=== PATIENT | male | born 1955 | race Asian ===

== ENCOUNTER 2017-07-06 13:14 | Inpatient (IN) | payer MEDICAID ==
[2017-07-06] MEDS: PROPOFOL 100 ML IV (13:26)
[2017-07-06 13:54] LABS: ADD MAN DIFF? NO
[2017-07-06 13:55] LABS: WHITE BLOOD COUNT 25.8 10^3/ul (4.8-10.8)
[2017-07-06 13:55] LABS: ABNORMAL IP MESSAGE 1; BASOPHIL # 0.1 10^3/ul (0.0-0.1); BASOPHILS % 0.2 % (0.0-2.0); HEMATOCRIT 30.3 % (42.0-52.0); HEMOGLOBIN 10.2 g/dl (14.0-18.0); LYMPHOCYTES % 3.7 % (15.0-51.0); MEAN CORPUSCULAR HEMOGLOBIN 38.8 pg (29.0-33.0); MEAN CORPUSCULAR HGB CONC 33.7 g/dl (32.0-37.0); MEAN CORPUSCULAR VOLUME 115.2 fl (82.0-101.0); MEAN PLATELET VOLUME 11.8 fl (7.4-10.4); MONOCYTE # 2.2 10^3/ul (0.3-0.9); MONOCYTES % 8.4 % (0.0-11.0); NEUTROPHIL # 22.2 10^3/ul (1.6-7.5); PLATELET COUNT 240 10^3/UL (140-415); POSITIVE DIFF @See below; RED BLOOD COUNT 2.63 10^6/ul (4.70-6.10); RED CELL DISTRIBUTION WIDTH 16.1 % (11.5-14.5)
[2017-07-06 14:18] LABS: AMMONIA 37 umol/l (9-30)
[2017-07-06 14:20] LABS: ALANINE AMINOTRANSFERASE 48 IU/L (13-69); ALBUMIN 2.9 g/dl (3.3-4.9); ALBUMIN/GLOBULIN RATIO 0.55; ALKALINE PHOSPHATASE 165 IU/L (42-121); ANION GAP 22 (8-16); ASPARTATE AMINO TRANSFERASE 182 IU/L (15-46); BILIRUBIN,INDIRECT 3.1 mg/dl (0-1.1); BILIRUBIN,TOTAL 7.2 mg/dl (0.2-1.3); BLOOD UREA NITROGEN 48 mg/dl (7-20); CARBON DIOXIDE 16 mmol/L (21-31); CHLORIDE 100 mmol/L (97-110); CREATININE 2.51 mg/dl (0.61-1.24); GLUCOSE 160 mg/dl (70-220); INR 2.56; LIPASE 521 U/L (23-300); PROTIME 28.2 Sec (11.9-14.9); PT RATIO 2.2; SODIUM 131 mmol/L (135-144); TOTAL PROTEIN 8.1 g/dl (6.1-8.1)
[2017-07-06 14:21] LABS: PARTIAL THROMBOPLASTIN TIME 58.6 Sec (25.0-35.0)
[2017-07-06 14:25] LABS: POTASSIUM 6.6 mmol/L (3.5-5.1)
[2017-07-06 14:27] LABS: AADO2 Arterial 204.5 mmHg (7.0-24.0); Allen Test ACCEPTAB; Arterial Base Excess -10.2 mmol/L (-3.0-3); Arterial Blood Gas Oxygen Sat 99.9 mmHG (95.0-98.0); Arterial COHb 0.5 % (0.0-3.0); Arterial HCO3 17.2 mmol/L (22.0-26.0); Arterial MetHb 0.4 % (0.0-1.5); Arterial Total Hemglobin 10.9 g/dl (12.0-18.0); Arterial pCO2 43.6 mmhg (35-45); MODE VENT - AC; Site Right Radial
[2017-07-06 14:31] LABS: TROPONIN-I 0.037 ng/ml (0.00-0.12)
[2017-07-06] MEDS: SOD CHLORIDE 0.9% 1,000 ML IV ×2 (14:31→20:21)
[2017-07-06] MEDS: MIDAZOLAM (DRIP) 50 mg/50 mL 50 ML IV (14:32)
[2017-07-06] MEDS: LACTATED RINGER'S 1,000 ML IV (14:41)
[2017-07-06] MEDS ORDERED: DEXTROSE 50% 50 ML SYRINGE IV (15:00)
[2017-07-06] MEDS: CEFEPIME 1GM/50 ML (PMX) 50 ML IVPB (15:01)
[2017-07-06] MEDS: ALBUTEROL 0.083% (NEB) 2.5 MG/3 ML AMP HHN (15:49)
[2017-07-06] MEDS: DEXTROSE 50% 50 ML SYRINGE IV (16:09)
[2017-07-06] MEDS: INSULIN REGULAR, HUMAN 100 UNIT/1 ML 3ML VIAL IVP (16:11)
[2017-07-06] MEDS: LACTULOSE 30ML CUP NGT (16:12)
[2017-07-06] MEDS: CALCIUM GLUCONATE 10% 1 GM in DEXTROSE 5% 100 ML IVPB (16:12)
[2017-07-06] MEDS: AZITHROMYCIN 500MG/NS (PMX) 250 ML IVPB (17:42)
[2017-07-06] MEDS ORDERED: VANCOMYCIN IV PER PHARMACY XX (18:00)
[2017-07-06] MEDS ORDERED: ONDANSETRON 4 MG INJ IV (18:00)
[2017-07-06] MEDS ORDERED: NACL 0.9% 3 ML SYG IV (18:00)
[2017-07-06] MEDS: LIDOCAINE 1% (MDV) 10 ML INJ (18:24)
[2017-07-06] MEDS: VANCOMYCIN 1.5 GM in SOD CHLORIDE 0.9% 250 ML IVPB (19:32)
[2017-07-06 19:42] LABS: ADD UMIC YES; UR AMORPHOUS CRYSTAL FEW /HPF (NONE SEEN); UR ASCORBIC ACID NEGATIVE (NEGATIVE); UR BILIRUBIN (Dip) 1+ mg/dL (NEGATIVE); UR BLOOD (Dip) 2+ mg/dL (NEGATIVE); UR CLARITY CLOUDY (CLEAR); UR COLOR AMBER (YELLOW); UR GLUCOSE (Dip) 1+ mg/dL (NEGATIVE); UR KETONES (Dip) NEGATIVE (NEGATIVE); UR LEUKOCYTE ESTERASE (Dip) TRACE Leu/ul (NEGATIVE); UR MUCUS FEW /HPF (NONE SEEN); UR NITRITE (Dip) NEGATIVE (NEGATIVE); UR RBC 5 /HPF (0-5); UR SPECIFIC GRAVITY (Dip) 1.016 (1.003-1.030); UR TOTAL PROTEIN (Dip) 1+ mg/dl (NEGATIVE); UR UROBILINOGEN (Dip) NEGATIVE (NEGATIVE); UR WBC 7 /HPF (0-5)
[2017-07-06] MEDS: PIPER-TAZO 3.375 GM IV (PMX) 100 ML IVPB (22:00)
[2017-07-07] MEDS: SOD CHLORIDE 0.9% 500 ML IV (01:13)
[2017-07-07] MEDS: PIPER-TAZO 3.375 GM IV (PMX) 100 ML IVPB ×3 (05:25→22:20)
[2017-07-07] MEDS: PANTOPRAZOLE 40 MG INJ IV (05:25)
[2017-07-07] MEDS: MIDAZOLAM (DRIP) 50 mg/50 mL 50 ML IV ×3 (05:33→16:07)
[2017-07-07 05:34] LABS: ADD MAN DIFF? NO
[2017-07-07 05:45] LABS: ABNORMAL IP MESSAGE 1; BASOPHILS % 0.1 % (0.0-2.0); EOSINOPHILS % 0.2 % (0.0-7.0); HEMATOCRIT 23.5 % (42.0-52.0); HEMOGLOBIN 8.3 g/dl (14.0-18.0); LYMPHOCYTES # 1.5 10^3/ul (0.8-2.9); LYMPHOCYTES % 8.5 % (15.0-51.0); MEAN CORPUSCULAR HGB CONC 35.3 g/dl (32.0-37.0); MEAN CORPUSCULAR VOLUME 110.3 fl (82.0-101.0); MEAN PLATELET VOLUME 12.2 fl (7.4-10.4); MONOCYTE # 1.5 10^3/ul (0.3-0.9); MONOCYTES % 8.6 % (0.0-11.0); NEUTROPHIL # 14.7 10^3/ul (1.6-7.5); PLATELET COUNT 162 10^3/UL (140-415); POSITIVE DIFF @See below; RED BLOOD COUNT 2.13 10^6/ul (4.70-6.10); RED CELL DISTRIBUTION WIDTH 15.6 % (11.5-14.5)
[2017-07-07 05:45] LABS: WHITE BLOOD COUNT 17.9 10^3/ul (4.8-10.8)
[2017-07-07 06:00] LABS: PHOSPHORUS 5.8 mg/dl (2.5-4.9)
[2017-07-07 06:02] LABS: HEMOGLOBIN A1C 5.3 % (0-5.9)
[2017-07-07 06:08] LABS: ALANINE AMINOTRANSFERASE 44 IU/L (13-69); ALBUMIN/GLOBULIN RATIO 0.48; ALKALINE PHOSPHATASE 112 IU/L (42-121); ANION GAP 10 (8-16); ASPARTATE AMINO TRANSFERASE 170 IU/L (15-46); BILIRUBIN,INDIRECT 2.9 mg/dl (0-1.1); BLOOD UREA NITROGEN 52 mg/dl (7-20); CALCIUM 7.8 mg/dl (8.4-10.2); CARBON DIOXIDE 24 mmol/L (21-31); CHLORIDE 107 mmol/L (97-110); CREATININE 2.15 mg/dl (0.61-1.24); GLUCOSE 105 mg/dl (70-220); POTASSIUM 5.8 mmol/L (3.5-5.1); SODIUM 135 mmol/L (135-144); TOTAL PROTEIN 6.1 g/dl (6.1-8.1)
[2017-07-07] MEDS: SOD CHLORIDE 0.9% 1,000 ML IV ×2 (06:30→16:52)
[2017-07-07] MEDS: ALBUMIN HUMAN 25% 50 ML IV ×2 (09:13→16:51)
[2017-07-07] MEDS: DEXTROSE 50% 50 ML SYRINGE IV (10:49)
[2017-07-07] MEDS: INSULIN REGULAR, HUMAN 100 UNIT/1 ML 3ML VIAL IVP (10:52)
[2017-07-07 14:37] LABS: ADD UMIC YES; UR ASCORBIC ACID NEGATIVE (NEGATIVE); UR BACTERIA FEW /HPF (NONE SEEN); UR BILIRUBIN (Dip) NEGATIVE (NEGATIVE); UR BLOOD (Dip) 1+ mg/dL (NEGATIVE); UR CLARITY SLIGHTLY CLOUDY (CLEAR); UR COLOR YELLOW (YELLOW); UR GLUCOSE (Dip) NEGATIVE (NEGATIVE); UR KETONES (Dip) NEGATIVE (NEGATIVE); UR LEUKOCYTE ESTERASE (Dip) NEGATIVE Leu/ul (NEGATIVE); UR NITRITE (Dip) NEGATIVE (NEGATIVE); UR RBC 1 /HPF (0-5); UR SPECIFIC GRAVITY (Dip) 1.013 (1.003-1.030); UR TOTAL PROTEIN (Dip) NEGATIVE (NEGATIVE); UR UROBILINOGEN (Dip) NEGATIVE (NEGATIVE); UR WBC 8 /HPF (0-5)
[2017-07-07 14:45] LABS: SODIUM,URINE RANDOM 52 mmol/L (30-90)
[2017-07-07 14:45] LABS: CREATININE,URINE RANDOM 59.45 mg/dl (20-370)
[2017-07-07 15:04] LABS: ANION GAP 13 (8-16); BLOOD UREA NITROGEN 49 mg/dl (7-20); CALCIUM 8.1 mg/dl (8.4-10.2); CARBON DIOXIDE 22 mmol/L (21-31); CHLORIDE 106 mmol/L (97-110); CREATININE 2.11 mg/dl (0.61-1.24); GLUCOSE 91 mg/dl (70-220); POTASSIUM 5.1 mmol/L (3.5-5.1); SODIUM 136 mmol/L (135-144)
[2017-07-07] MEDS: VANCOMYCIN 750 MG in DEXTROSE 5% 150 ML IVPB (20:25)
[2017-07-08] MEDS: ALBUMIN HUMAN 25% 50 ML IV (00:19)
[2017-07-08] MEDS: MIDAZOLAM (DRIP) 50 mg/50 mL 50 ML IV ×2 (00:20→18:00)
[2017-07-08 06:09] LABS: ADD MAN DIFF? NO
[2017-07-08 06:18] LABS: BASOPHILS % 0.2 % (0.0-2.0); EOSINOPHILS # 0.1 10^3/ul (0.0-0.5); EOSINOPHILS % 0.9 % (0.0-7.0); HEMATOCRIT 24.9 % (42.0-52.0); HEMOGLOBIN 8.9 g/dl (14.0-18.0); LYMPHOCYTES # 1.2 10^3/ul (0.8-2.9); LYMPHOCYTES % 9.2 % (15.0-51.0); MEAN CORPUSCULAR HEMOGLOBIN 39.4 pg (29.0-33.0); MEAN CORPUSCULAR HGB CONC 35.7 g/dl (32.0-37.0); MEAN CORPUSCULAR VOLUME 110.2 fl (82.0-101.0); MEAN PLATELET VOLUME 12.7 fl (7.4-10.4); MONOCYTE # 1.3 10^3/ul (0.3-0.9); MONOCYTES % 9.6 % (0.0-11.0); NEUTROPHIL # 10.4 10^3/ul (1.6-7.5); NEUTROPHILS % 79.6 % (39.0-77.0); NUCLEATED RED BLOOD CELLS% 0.2 /100WBC (0.0-0.0); PLATELET COUNT 148 10^3/UL (140-415); RED BLOOD COUNT 2.26 10^6/ul (4.70-6.10); RED CELL DISTRIBUTION WIDTH 16.1 % (11.5-14.5)
[2017-07-08] MEDS: PIPER-TAZO 3.375 GM IV (PMX) 100 ML IVPB ×3 (06:19→22:05)
[2017-07-08] MEDS: PANTOPRAZOLE 40 MG INJ IV (06:19)
[2017-07-08] MEDS: SOD CHLORIDE 0.9% 1,000 ML IV ×2 (06:19→14:59)
[2017-07-08 06:32] LABS: ANION GAP 13 (8-16); BLOOD UREA NITROGEN 42 mg/dl (7-20); CALCIUM 8.3 mg/dl (8.4-10.2); CARBON DIOXIDE 21 mmol/L (21-31); CHLORIDE 110 mmol/L (97-110); CREATININE 1.76 mg/dl (0.61-1.24); GLUCOSE 95 mg/dl (70-220); MAGNESIUM 2.1 mg/dl (1.7-2.5); PHOSPHORUS 3.9 mg/dl (2.5-4.9); POTASSIUM 4.8 mmol/L (3.5-5.1); SODIUM 139 mmol/L (135-144)
[2017-07-08] MEDS ORDERED: ALBUMIN HUMAN 25% 100 ML (09:07)
[2017-07-08] MEDS: ALBUMIN HUMAN 25% 100 ML IV ×2 (09:43→17:57)
[2017-07-08 13:23] LABS: AADO2 Arterial 66.3 mmHg (7.0-24.0); Allen Test ACCEPTAB; Arterial Base Excess -4.6 mmol/L (-3.0-3); Arterial Blood Gas Oxygen Sat 97.6 mmHG (95.0-98.0); Arterial COHb 0.6 % (0.0-3.0); Arterial Fraction of Oxyhgb 96.7 % (93.0-99.0); Arterial HCO3 19.5 mmol/L (22.0-26.0); Arterial MetHb 0.3 % (0.0-1.5); Arterial Total Hemglobin 9.9 g/dl (12.0-18.0); Arterial pCO2 32.3 mmhg (35-45); Blood Gas PS 10; MODE VENT - CPAP; Site Right Radial
[2017-07-08] MEDS: VANCOMYCIN 750 MG in DEXTROSE 5% 150 ML IVPB (19:43)
[2017-07-09] MEDS: MIDAZOLAM (DRIP) 50 mg/50 mL 50 ML IV (00:22)
[2017-07-09] MEDS: ALBUMIN HUMAN 25% 100 ML IV (02:17)
[2017-07-09 05:20] LABS: ADD MAN DIFF? NO
[2017-07-09 05:27] LABS: BASOPHIL # 0.1 10^3/ul (0.0-0.1); BASOPHILS % 0.4 % (0.0-2.0); EOSINOPHILS # 0.1 10^3/ul (0.0-0.5); HEMATOCRIT 25.1 % (42.0-52.0); HEMOGLOBIN 8.7 g/dl (14.0-18.0); LYMPHOCYTES # 1.2 10^3/ul (0.8-2.9); LYMPHOCYTES % 10.8 % (15.0-51.0); MEAN CORPUSCULAR HEMOGLOBIN 39.2 pg (29.0-33.0); MEAN CORPUSCULAR HGB CONC 34.7 g/dl (32.0-37.0); MEAN CORPUSCULAR VOLUME 113.1 fl (82.0-101.0); MEAN PLATELET VOLUME 11.8 fl (7.4-10.4); MONOCYTE # 1.1 10^3/ul (0.3-0.9); MONOCYTES % 10.1 % (0.0-11.0); NEUTROPHIL # 8.7 10^3/ul (1.6-7.5); NEUTROPHILS % 77.2 % (39.0-77.0); PLATELET COUNT 136 10^3/UL (140-415); POSITIVE DIFF @See below; RED BLOOD COUNT 2.22 10^6/ul (4.70-6.10); RED CELL DISTRIBUTION WIDTH 16.2 % (11.5-14.5)
[2017-07-09 05:27] LABS: WHITE BLOOD COUNT 11.3 10^3/ul (4.8-10.8)
[2017-07-09 06:12] LABS: ANION GAP 15 (8-16); BLOOD UREA NITROGEN 37 mg/dl (7-20); CALCIUM 8.8 mg/dl (8.4-10.2); CARBON DIOXIDE 19 mmol/L (21-31); CHLORIDE 113 mmol/L (97-110); CREATININE 1.48 mg/dl (0.61-1.24); GLUCOSE 103 mg/dl (70-220); MAGNESIUM 2.1 mg/dl (1.7-2.5); PHOSPHORUS 3.9 mg/dl (2.5-4.9); POTASSIUM 4.8 mmol/L (3.5-5.1); SODIUM 142 mmol/L (135-144)
[2017-07-09] MEDS: PIPER-TAZO 3.375 GM IV (PMX) 100 ML IVPB ×3 (06:27→22:34)
[2017-07-09] MEDS: PANTOPRAZOLE 40 MG INJ IV (06:27)
[2017-07-09] MEDS: SOD CHLORIDE 0.9% 1,000 ML IV ×3 (06:38→22:35)
[2017-07-09] MEDS: PHYTONADIONE 10 MG/ML INJ SC (13:03)
[2017-07-09] MEDS: VANCOMYCIN 750 MG in DEXTROSE 5% 150 ML IVPB (19:45)
[2017-07-09 19:52] LABS: VANCOMYCIN,TROUGH 11.3 ug/ml (10.0-20.0)
[2017-07-10] MEDS: PANTOPRAZOLE 40 MG INJ IV (05:34)
[2017-07-10] MEDS: PIPER-TAZO 3.375 GM IV (PMX) 100 ML IVPB ×3 (05:34→22:42)
[2017-07-10 05:35] LABS: ADD MAN DIFF? NO
[2017-07-10 05:37] LABS: BASOPHIL # 0.1 10^3/ul (0.0-0.1); BASOPHILS % 0.5 % (0.0-2.0); EOSINOPHILS # 0.1 10^3/ul (0.0-0.5); EOSINOPHILS % 1.1 % (0.0-7.0); HEMATOCRIT 27.8 % (42.0-52.0); HEMOGLOBIN 9.1 g/dl (14.0-18.0); LYMPHOCYTES # 1.2 10^3/ul (0.8-2.9); MEAN CORPUSCULAR HEMOGLOBIN 39.2 pg (29.0-33.0); MEAN CORPUSCULAR HGB CONC 32.7 g/dl (32.0-37.0); MEAN CORPUSCULAR VOLUME 119.8 fl (82.0-101.0); MONOCYTE # 1.5 10^3/ul (0.3-0.9); MONOCYTES % 13.2 % (0.0-11.0); NEUTROPHIL # 8.1 10^3/ul (1.6-7.5); NEUTROPHILS % 73.8 % (39.0-77.0); NUCLEATED RED BLOOD CELLS% 0.2 /100WBC (0.0-0.0); PLATELET COUNT 130 10^3/UL (140-415); RED BLOOD COUNT 2.32 10^6/ul (4.70-6.10); RED CELL DISTRIBUTION WIDTH 15.5 % (11.5-14.5)
[2017-07-10 05:52] LABS: AMMONIA 14 umol/l (9-30)
[2017-07-10 05:55] LABS: INR 2.78; PROTIME 30.1 Sec (11.9-14.9); PT RATIO 2.4
[2017-07-10 05:56] LABS: PARTIAL THROMBOPLASTIN TIME 58.2 Sec (25.0-35.0)
[2017-07-10 06:12] LABS: MAGNESIUM 2.1 mg/dl (1.7-2.5)
[2017-07-10 06:19] LABS: ALANINE AMINOTRANSFERASE 47 IU/L (13-69); ALBUMIN 2.9 g/dl (3.3-4.9); ALKALINE PHOSPHATASE 114 IU/L (42-121); ANION GAP 16 (8-16); ASPARTATE AMINO TRANSFERASE 148 IU/L (15-46); BILIRUBIN,INDIRECT 4.4 mg/dl (0-1.1); BILIRUBIN,TOTAL 9.2 mg/dl (0.2-1.3); BLOOD UREA NITROGEN 30 mg/dl (7-20); CALCIUM 8.6 mg/dl (8.4-10.2); CARBON DIOXIDE 19 mmol/L (21-31); CHLORIDE 116 mmol/L (97-110); CREATININE 1.23 mg/dl (0.61-1.24); GLUCOSE 108 mg/dl (70-220); POTASSIUM 4.9 mmol/L (3.5-5.1); SODIUM 146 mmol/L (135-144)
[2017-07-10 08:10] LABS: AADO2 Arterial 77.2 mmHg (7.0-24.0); Allen Test ACCEPTAB; Arterial Base Excess -5.3 mmol/L (-3.0-3); Arterial Blood Gas Oxygen Sat 96.3 mmHG (95.0-98.0); Arterial COHb 0.4 % (0.0-3.0); Arterial Fraction of Oxyhgb 95.6 % (93.0-99.0); Arterial HCO3 19.4 mmol/L (22.0-26.0); Arterial MetHb 0.3 % (0.0-1.5); Arterial Total Hemglobin 8.8 g/dl (12.0-18.0); Arterial pCO2 34.2 mmhg (35-45); Blood Gas PS 10; MODE VENT - CPAP; Site Right Radial
[2017-07-10] MEDS: PHYTONADIONE 10 MG/ML INJ SC (08:53)
[2017-07-10] MEDS: DEXTROSE 5%-0.45% NACL 1,000 ML IV (08:53)
[2017-07-10] MEDS: LACTULOSE 30ML CUP PO ×2 (12:00→18:00)
[2017-07-10] MEDS: RIFAXIMIN 550 MG TAB PO ×2 (12:30→21:00)
[2017-07-10] MEDS: BALSAM PERU/CASTOR OIL 60 GM TUBE TOP (13:00)
[2017-07-10 14:57] LABS: CREATININE, RANDOM URINE 72 mg/dL (20-370); MICROALBUMIN 1.2 mg/dL; MICROALBUMIN/CREATININE RATIO 17 (<30)
[2017-07-10] MEDS: VANCOMYCIN 750 MG in DEXTROSE 5% 150 ML IVPB (20:39)
[2017-07-10] MEDS: VITAMIN A & D 5 GM OINT PACKET TOP (21:00)
[2017-07-11 05:46] LABS: ADD MAN DIFF? NO
[2017-07-11 05:48] LABS: WHITE BLOOD COUNT 10.3 10^3/ul (4.8-10.8)
[2017-07-11 05:48] LABS: BASOPHIL # 0.1 10^3/ul (0.0-0.1); BASOPHILS % 0.5 % (0.0-2.0); EOSINOPHILS # 0.2 10^3/ul (0.0-0.5); EOSINOPHILS % 2.1 % (0.0-7.0); HEMATOCRIT 24.7 % (42.0-52.0); HEMOGLOBIN 8.5 g/dl (14.0-18.0); LYMPHOCYTES # 1.4 10^3/ul (0.8-2.9); LYMPHOCYTES % 13.1 % (15.0-51.0); MEAN CORPUSCULAR HGB CONC 34.4 g/dl (32.0-37.0); MEAN CORPUSCULAR VOLUME 113.3 fl (82.0-101.0); MEAN PLATELET VOLUME 12.3 fl (7.4-10.4); MONOCYTE # 1.4 10^3/ul (0.3-0.9); MONOCYTES % 13.3 % (0.0-11.0); NEUTROPHIL # 7.3 10^3/ul (1.6-7.5); NEUTROPHILS % 70.5 % (39.0-77.0); PLATELET COUNT 133 10^3/UL (140-415); RED BLOOD COUNT 2.18 10^6/ul (4.70-6.10); RED CELL DISTRIBUTION WIDTH 15.7 % (11.5-14.5)
[2017-07-11] MEDS: PIPER-TAZO 3.375 GM IV (PMX) 100 ML IVPB ×3 (05:54→22:00)
[2017-07-11] MEDS: LACTULOSE 30ML CUP PO ×4 (06:00→18:00)
[2017-07-11] MEDS: DEXTROSE 5%-0.45% NACL 1,000 ML IV (06:01)
[2017-07-11] MEDS: PANTOPRAZOLE 40 MG INJ IV (06:02)
[2017-07-11 06:12] LABS: INR 2.54; PT RATIO 2.2
[2017-07-11 06:15] LABS: ALANINE AMINOTRANSFERASE 46 IU/L (13-69); ALBUMIN 2.5 g/dl (3.3-4.9); ALKALINE PHOSPHATASE 94 IU/L (42-121); ANION GAP 10 (8-16); ASPARTATE AMINO TRANSFERASE 133 IU/L (15-46); BILIRUBIN,INDIRECT 3.9 mg/dl (0-1.1); BILIRUBIN,TOTAL 7.1 mg/dl (0.2-1.3); BLOOD UREA NITROGEN 23 mg/dl (7-20); CALCIUM 8.9 mg/dl (8.4-10.2); CARBON DIOXIDE 22 mmol/L (21-31); CHLORIDE 117 mmol/L (97-110); CREATININE 1.11 mg/dl (0.61-1.24); GLUCOSE 132 mg/dl (70-220); POTASSIUM 4.6 mmol/L (3.5-5.1); SODIUM 144 mmol/L (135-144); TOTAL PROTEIN 6.6 g/dl (6.1-8.1)
[2017-07-11 06:33] LABS: MAGNESIUM 1.9 mg/dl (1.7-2.5)
[2017-07-11 06:33] LABS: PHOSPHORUS 2.9 mg/dl (2.5-4.9)
[2017-07-11 07:23] LABS: PARTIAL THROMBOPLASTIN TIME 61.4 Sec (25.0-35.0)
[2017-07-11] MEDS: RIFAXIMIN 550 MG TAB PO (08:57)
[2017-07-11] MEDS: VITAMIN A & D 5 GM OINT PACKET TOP ×2 (09:08→21:00)
[2017-07-11] MEDS: BALSAM PERU/CASTOR OIL 60 GM TUBE TOP (09:08)
[2017-07-11] MEDS: PHYTONADIONE 10 MG/ML INJ SC (09:08)
[2017-07-11] MEDS: VANCOMYCIN 750 MG in DEXTROSE 5% 150 ML IVPB (19:55)
[2017-07-12] MEDS: LACTULOSE 30ML CUP PO ×4 (00:37→18:29)
[2017-07-12] MEDS: RIFAXIMIN 550 MG TAB PO ×3 (00:37→21:44)
[2017-07-12] MEDS: morphine 2 MG INJ IV (01:31)
[2017-07-12] MEDS: DEXTROSE 5%-0.45% NACL 1,000 ML IV ×2 (05:20→20:00)
[2017-07-12 05:54] LABS: ALANINE AMINOTRANSFERASE 55 IU/L (13-69); ALBUMIN 2.5 g/dl (3.3-4.9); ALBUMIN/GLOBULIN RATIO 0.59; ALKALINE PHOSPHATASE 103 IU/L (42-121); ANION GAP 11 (8-16); ASPARTATE AMINO TRANSFERASE 139 IU/L (15-46); BILIRUBIN,TOTAL 7.1 mg/dl (0.2-1.3); BLOOD UREA NITROGEN 18 mg/dl (7-20); CALCIUM 8.9 mg/dl (8.4-10.2); CARBON DIOXIDE 21 mmol/L (21-31); CHLORIDE 120 mmol/L (97-110); CREATININE 1.07 mg/dl (0.61-1.24); GLUCOSE 133 mg/dl (70-220); POTASSIUM 4.3 mmol/L (3.5-5.1); SODIUM 148 mmol/L (135-144); TOTAL PROTEIN 6.7 g/dl (6.1-8.1)
[2017-07-12] MEDS: PANTOPRAZOLE 40 MG INJ IV (05:58)
[2017-07-12] MEDS: PIPER-TAZO 3.375 GM IV (PMX) 100 ML IVPB ×3 (05:58→21:44)
[2017-07-12] MEDS: THIAMINE 100 MG TAB PO (11:00)
[2017-07-12] MEDS: FOLIC ACID 1 MG TAB PO (11:00)
[2017-07-12] MEDS: VITAMIN A & D 5 GM OINT PACKET TOP ×2 (11:42→21:43)
[2017-07-12] MEDS: BALSAM PERU/CASTOR OIL 60 GM TUBE TOP (11:43)
[2017-07-13] MEDS: LACTULOSE 30ML CUP PO ×4 (00:54→18:50)
[2017-07-13] MEDS: PIPER-TAZO 3.375 GM IV (PMX) 100 ML IVPB ×3 (06:00→20:54)
[2017-07-13] MEDS: PANTOPRAZOLE 40 MG INJ IV (06:00)
[2017-07-13 06:17] LABS: ADD MAN DIFF? NO
[2017-07-13 06:24] LABS: WHITE BLOOD COUNT 11.8 10^3/ul (4.8-10.8)
[2017-07-13 06:24] LABS: BASOPHILS % 0.3 % (0.0-2.0); EOSINOPHILS # 0.2 10^3/ul (0.0-0.5); EOSINOPHILS % 1.6 % (0.0-7.0); HEMATOCRIT 24.3 % (42.0-52.0); HEMOGLOBIN 8.4 g/dl (14.0-18.0); LYMPHOCYTES # 1.3 10^3/ul (0.8-2.9); LYMPHOCYTES % 10.6 % (15.0-51.0); MEAN CORPUSCULAR HEMOGLOBIN 39.4 pg (29.0-33.0); MEAN CORPUSCULAR HGB CONC 34.6 g/dl (32.0-37.0); MEAN CORPUSCULAR VOLUME 114.1 fl (82.0-101.0); MEAN PLATELET VOLUME 11.7 fl (7.4-10.4); MONOCYTE # 1.1 10^3/ul (0.3-0.9); MONOCYTES % 9.5 % (0.0-11.0); NEUTROPHIL # 9.1 10^3/ul (1.6-7.5); NEUTROPHILS % 77.2 % (39.0-77.0); PLATELET COUNT 107 10^3/UL (140-415); POSITIVE DIFF @See below; RED BLOOD COUNT 2.13 10^6/ul (4.70-6.10); RED CELL DISTRIBUTION WIDTH 15.6 % (11.5-14.5)
[2017-07-13 06:54] LABS: ALANINE AMINOTRANSFERASE 53 IU/L (13-69); ALBUMIN 2.4 g/dl (3.3-4.9); ALBUMIN/GLOBULIN RATIO 0.58; ALKALINE PHOSPHATASE 98 IU/L (42-121); ANION GAP 10 (8-16); ASPARTATE AMINO TRANSFERASE 126 IU/L (15-46); BILIRUBIN,INDIRECT 3.9 mg/dl (0-1.1); BILIRUBIN,TOTAL 6.5 mg/dl (0.2-1.3); BLOOD UREA NITROGEN 16 mg/dl (7-20); CALCIUM 8.8 mg/dl (8.4-10.2); CARBON DIOXIDE 22 mmol/L (21-31); CHLORIDE 119 mmol/L (97-110); CREATININE 0.98 mg/dl (0.61-1.24); GLUCOSE 131 mg/dl (70-220); POTASSIUM 4.2 mmol/L (3.5-5.1); SODIUM 147 mmol/L (135-144); TOTAL PROTEIN 6.5 g/dl (6.1-8.1)
[2017-07-13] MEDS: DEXTROSE 5%-0.45% NACL 1,000 ML IV (07:05)
[2017-07-13 08:55] LABS: PLATELET COUNT 123 10^3/UL (140-415)
[2017-07-13] MEDS: THIAMINE 100 MG TAB PO (08:56)
[2017-07-13] MEDS: RIFAXIMIN 550 MG TAB PO ×2 (08:56→20:54)
[2017-07-13] MEDS: BALSAM PERU/CASTOR OIL 60 GM TUBE TOP (08:56)
[2017-07-13] MEDS: DEXTROSE 5% 1,000 ML IV (08:56)
[2017-07-13] MEDS: FUROSEMIDE 40 MG INJ IV (08:56)
[2017-07-13] MEDS: VITAMIN A & D 5 GM OINT PACKET TOP ×2 (08:56→20:54)
[2017-07-13] MEDS: FOLIC ACID 1 MG TAB PO (08:56)
[2017-07-13 09:25] LABS: INR 2.58; PROTIME 28.4 Sec (11.9-14.9); PT RATIO 2.2
[2017-07-13 09:26] LABS: PARTIAL THROMBOPLASTIN TIME 63.5 Sec (25.0-35.0)
[2017-07-13 09:54] LABS: THROMBIN TIME 23.4 SEC (13.8-19.1)
[2017-07-14] MEDS: DEXTROSE 5% 1,000 ML IV (04:04)
[2017-07-14] MEDS: PIPER-TAZO 3.375 GM IV (PMX) 100 ML IVPB ×3 (06:00→23:17)
[2017-07-14] MEDS: LACTULOSE 30ML CUP PO ×4 (06:00→17:56)
[2017-07-14] MEDS: PANTOPRAZOLE 40 MG INJ IV (06:31)
[2017-07-14 08:01] LABS: ADD MAN DIFF? NO
[2017-07-14 08:11] LABS: ABNORMAL IP MESSAGE 1; BASOPHIL # 0.1 10^3/ul (0.0-0.1); BASOPHILS % 0.4 % (0.0-2.0); EOSINOPHILS # 0.2 10^3/ul (0.0-0.5); EOSINOPHILS % 1.7 % (0.0-7.0); HEMATOCRIT 25.2 % (42.0-52.0); HEMOGLOBIN 8.8 g/dl (14.0-18.0); LYMPHOCYTES # 1.6 10^3/ul (0.8-2.9); LYMPHOCYTES % 11.3 % (15.0-51.0); MEAN CORPUSCULAR HEMOGLOBIN 39.6 pg (29.0-33.0); MEAN CORPUSCULAR HGB CONC 34.9 g/dl (32.0-37.0); MEAN CORPUSCULAR VOLUME 113.5 fl (82.0-101.0); MEAN PLATELET VOLUME 11.8 fl (7.4-10.4); MONOCYTE # 1.4 10^3/ul (0.3-0.9); MONOCYTES % 9.7 % (0.0-11.0); NEUTROPHIL # 10.7 10^3/ul (1.6-7.5); NEUTROPHILS % 76.3 % (39.0-77.0); PLATELET COUNT 98 10^3/UL (140-415); POSITIVE DIFF @See below; RED BLOOD COUNT 2.22 10^6/ul (4.70-6.10); RED CELL DISTRIBUTION WIDTH 15.5 % (11.5-14.5)
[2017-07-14 08:27] LABS: PHOSPHORUS 2.7 mg/dl (2.5-4.9)
[2017-07-14 08:27] LABS: MAGNESIUM 1.6 mg/dl (1.7-2.5)
[2017-07-14 08:36] LABS: ALANINE AMINOTRANSFERASE 55 IU/L (13-69); ALBUMIN 2.5 g/dl (3.3-4.9); ALBUMIN/GLOBULIN RATIO 0.56; ALKALINE PHOSPHATASE 122 IU/L (42-121); ANION GAP 14 (8-16); ASPARTATE AMINO TRANSFERASE 117 IU/L (15-46); BILIRUBIN,TOTAL 6.4 mg/dl (0.2-1.3); BLOOD UREA NITROGEN 16 mg/dl (7-20); CALCIUM 8.6 mg/dl (8.4-10.2); CARBON DIOXIDE 19 mmol/L (21-31); CHLORIDE 114 mmol/L (97-110); CREATININE 1.15 mg/dl (0.61-1.24); GLUCOSE 140 mg/dl (70-220); POTASSIUM 3.9 mmol/L (3.5-5.1); SODIUM 143 mmol/L (135-144); TOTAL PROTEIN 6.9 g/dl (6.1-8.1)
[2017-07-14] MEDS: RIFAXIMIN 550 MG TAB PO ×2 (09:10→20:43)
[2017-07-14] MEDS: FOLIC ACID 1 MG TAB PO (09:10)
[2017-07-14] MEDS: BALSAM PERU/CASTOR OIL 60 GM TUBE TOP (09:11)
[2017-07-14] MEDS: VITAMIN A & D 5 GM OINT PACKET TOP ×2 (12:09→20:43)
[2017-07-14] MEDS: THIAMINE 100 MG TAB PO (12:09)
[2017-07-14] MEDS: FUROSEMIDE 20 MG TAB PO (12:12)
[2017-07-14] MEDS: SPIRONOLACTONE 50 MG TAB PO (13:39)
[2017-07-14] MEDS: PHYTONADIONE 10 MG/ML INJ SC (18:03)
[2017-07-15] MEDS: LACTULOSE 30ML CUP PO ×5 (00:13→23:47)
[2017-07-15] MEDS: PIPER-TAZO 3.375 GM IV (PMX) 100 ML IVPB ×3 (05:25→21:09)
[2017-07-15] MEDS: PANTOPRAZOLE 40 MG INJ IV (05:25)
[2017-07-15] MEDS: FUROSEMIDE 20 MG TAB PO (05:26)
[2017-07-15] MEDS: SPIRONOLACTONE 50 MG TAB PO (05:26)
[2017-07-15] MEDS: BALSAM PERU/CASTOR OIL 60 GM TUBE TOP ×2 (06:00→09:00)
[2017-07-15 07:29] LABS: ALANINE AMINOTRANSFERASE 55 IU/L (13-69); ALBUMIN 2.9 g/dl (3.3-4.9); ALBUMIN/GLOBULIN RATIO 0.61; ALKALINE PHOSPHATASE 135 IU/L (42-121); ANION GAP 15 (8-16); ASPARTATE AMINO TRANSFERASE 111 IU/L (15-46); BILIRUBIN,INDIRECT 4.9 mg/dl (0-1.1); BLOOD UREA NITROGEN 18 mg/dl (7-20); CALCIUM 8.6 mg/dl (8.4-10.2); CARBON DIOXIDE 20 mmol/L (21-31); CHLORIDE 111 mmol/L (97-110); CREATININE 1.28 mg/dl (0.61-1.24); GLUCOSE 132 mg/dl (70-220); POTASSIUM 3.9 mmol/L (3.5-5.1); SODIUM 142 mmol/L (135-144); TOTAL PROTEIN 7.6 g/dl (6.1-8.1)
[2017-07-15] MEDS: FOLIC ACID 1 MG TAB PO (09:35)
[2017-07-15] MEDS: THIAMINE 100 MG TAB PO (09:37)
[2017-07-15] MEDS: RIFAXIMIN 550 MG TAB PO ×2 (09:38→21:07)
[2017-07-15] MEDS: VITAMIN A & D 5 GM OINT PACKET TOP ×2 (09:39→21:08)
[2017-07-15] MEDS: PHYTONADIONE 10 MG/ML INJ SC (17:54)
[2017-07-16] MEDS: SPIRONOLACTONE 50 MG TAB PO (05:47)
[2017-07-16] MEDS: PANTOPRAZOLE 40 MG INJ IV (05:47)
[2017-07-16] MEDS: LACTULOSE 30ML CUP PO ×4 (05:47→17:05)
[2017-07-16] MEDS: PIPER-TAZO 3.375 GM IV (PMX) 100 ML IVPB ×3 (05:47→21:06)
[2017-07-16] MEDS: FUROSEMIDE 20 MG TAB PO (05:48)
[2017-07-16 06:16] LABS: ADD MAN DIFF? NO
[2017-07-16 06:18] LABS: WHITE BLOOD COUNT 13.9 10^3/ul (4.8-10.8)
[2017-07-16 06:18] LABS: ABNORMAL IP MESSAGE 1; BASOPHIL # 0.1 10^3/ul (0.0-0.1); BASOPHILS % 0.4 % (0.0-2.0); EOSINOPHILS # 0.2 10^3/ul (0.0-0.5); EOSINOPHILS % 1.1 % (0.0-7.0); HEMATOCRIT 25.8 % (42.0-52.0); LYMPHOCYTES # 1.6 10^3/ul (0.8-2.9); LYMPHOCYTES % 11.8 % (15.0-51.0); MEAN CORPUSCULAR HEMOGLOBIN 39.3 pg (29.0-33.0); MEAN CORPUSCULAR HGB CONC 34.9 g/dl (32.0-37.0); MEAN CORPUSCULAR VOLUME 112.7 fl (82.0-101.0); MEAN PLATELET VOLUME 12.3 fl (7.4-10.4); MONOCYTE # 1.1 10^3/ul (0.3-0.9); MONOCYTES % 7.8 % (0.0-11.0); NEUTROPHIL # 10.9 10^3/ul (1.6-7.5); NEUTROPHILS % 78.2 % (39.0-77.0); PLATELET COUNT 93 10^3/UL (140-415); POSITIVE DIFF @See below; RED BLOOD COUNT 2.29 10^6/ul (4.70-6.10); RED CELL DISTRIBUTION WIDTH 15.1 % (11.5-14.5)
[2017-07-16 06:43] LABS: MAGNESIUM 1.6 mg/dl (1.7-2.5)
[2017-07-16 06:50] LABS: ALANINE AMINOTRANSFERASE 48 IU/L (13-69); ALBUMIN 2.7 g/dl (3.3-4.9); ALBUMIN/GLOBULIN RATIO 0.56; ALKALINE PHOSPHATASE 133 IU/L (42-121); ANION GAP 13 (8-16); ASPARTATE AMINO TRANSFERASE 99 IU/L (15-46); BILIRUBIN,INDIRECT 4.5 mg/dl (0-1.1); BILIRUBIN,TOTAL 7.9 mg/dl (0.2-1.3); BLOOD UREA NITROGEN 20 mg/dl (7-20); CALCIUM 8.3 mg/dl (8.4-10.2); CARBON DIOXIDE 21 mmol/L (21-31); CHLORIDE 110 mmol/L (97-110); CREATININE 1.26 mg/dl (0.61-1.24); GLUCOSE 117 mg/dl (70-220); POTASSIUM 4.2 mmol/L (3.5-5.1); SODIUM 140 mmol/L (135-144); TOTAL PROTEIN 7.5 g/dl (6.1-8.1)
[2017-07-16 06:52] LABS: INR 2.56; PROTIME 28.2 Sec (11.9-14.9); PT RATIO 2.2
[2017-07-16 08:31] LABS: VITAMIN B1 (THIAMINE) 88 nmol/L (78-185)
[2017-07-16] MEDS: BALSAM PERU/CASTOR OIL 60 GM TUBE TOP (09:00)
[2017-07-16] MEDS: VITAMIN A & D 5 GM OINT PACKET TOP ×2 (09:00→21:07)
[2017-07-16] MEDS: RIFAXIMIN 550 MG TAB PO ×2 (11:23→21:07)
[2017-07-16] MEDS: FOLIC ACID 1 MG TAB PO (11:24)
[2017-07-16] MEDS: THIAMINE 100 MG TAB PO (11:24)
[2017-07-16] MEDS: LIDOCAINE 1% (MDV) 10 ML INJ (13:26)
[2017-07-16 15:11] LABS: FLD RBC 0 /uL; FLD WBC 54 /cmm
[2017-07-16 15:24] LABS: FLUID LD 163 U/L; FLUID TOTAL PROTEIN < 2.0 g/dl; FLUID TYPE ASCITIES FLUID
[2017-07-16 15:25] LABS: FLD TYPE ASCITES
[2017-07-16 15:25] LABS: FLD CLARITY CLEAR; FLD COLOR YELLOW
[2017-07-17] MEDS: PIPER-TAZO 3.375 GM IV (PMX) 100 ML IVPB ×2 (05:59→13:44)
[2017-07-17] MEDS: FUROSEMIDE 20 MG TAB PO (06:00)
[2017-07-17] MEDS: PANTOPRAZOLE 40 MG INJ IV (06:00)
[2017-07-17] MEDS: SPIRONOLACTONE 50 MG TAB PO (06:01)
[2017-07-17] MEDS: LACTULOSE 30ML CUP PO ×4 (06:03→17:25)
[2017-07-17] MEDS: VITAMIN A & D 5 GM OINT PACKET TOP ×2 (08:47→21:13)
[2017-07-17] MEDS: FOLIC ACID 1 MG TAB PO (08:47)
[2017-07-17] MEDS: BALSAM PERU/CASTOR OIL 60 GM TUBE TOP (08:47)
[2017-07-17] MEDS: RIFAXIMIN 550 MG TAB PO ×2 (08:47→21:11)
[2017-07-17] MEDS: THIAMINE 100 MG TAB PO (09:06)
[2017-07-17 09:31] LABS: ALBUMIN/GLOBULIN RATIO 0.53; ANION GAP 10 (8-16)
[2017-07-17 09:41] LABS: ALANINE AMINOTRANSFERASE 48 IU/L (13-69); ALBUMIN 2.4 g/dl (3.3-4.9); ALKALINE PHOSPHATASE 113 IU/L (42-121); ASPARTATE AMINO TRANSFERASE 98 IU/L (15-46); BILIRUBIN,INDIRECT 4.7 mg/dl (0-1.1); BILIRUBIN,TOTAL 8.3 mg/dl (0.2-1.3); BLOOD UREA NITROGEN 19 mg/dl (7-20); CALCIUM 8.4 mg/dl (8.4-10.2); CARBON DIOXIDE 21 mmol/L (21-31); CHLORIDE 109 mmol/L (97-110); CREATININE 1.14 mg/dl (0.61-1.24); GLUCOSE 101 mg/dl (70-220); POTASSIUM 4.3 mmol/L (3.5-5.1); SODIUM 136 mmol/L (135-144); TOTAL PROTEIN 6.9 g/dl (6.1-8.1)
[2017-07-17 11:52] LABS: CARCINOEMBRYONIC ANTIGEN 5.2 ng/ml (0.0-5.0)
[2017-07-17 12:03] LABS: ALPHA FETOPROTEIN 5.83 IU/L (0.00-7.21)
[2017-07-18] MEDS: LACTULOSE 30ML CUP PO ×4 (00:08→17:05)
[2017-07-18] MEDS: PANTOPRAZOLE 40 MG INJ IV (05:45)
[2017-07-18] MEDS: FUROSEMIDE 20 MG TAB PO (05:46)
[2017-07-18] MEDS: SPIRONOLACTONE 50 MG TAB PO (05:46)
[2017-07-18] MEDS: THIAMINE 100 MG TAB PO (09:41)
[2017-07-18] MEDS: BALSAM PERU/CASTOR OIL 60 GM TUBE TOP (09:41)
[2017-07-18] MEDS: RIFAXIMIN 550 MG TAB PO ×2 (09:41→21:04)
[2017-07-18] MEDS: FOLIC ACID 1 MG TAB PO (09:41)
[2017-07-18] MEDS: VITAMIN A & D 5 GM OINT PACKET TOP ×2 (09:41→21:04)
[2017-07-19] MEDS: LACTULOSE 30ML CUP PO ×4 (00:31→17:49)
[2017-07-19 06:03] LABS: ADD MAN DIFF? NO
[2017-07-19 06:12] LABS: BASOPHILS % 0.2 % (0.0-2.0); EOSINOPHILS # 0.1 10^3/ul (0.0-0.5); HEMATOCRIT 23.4 % (42.0-52.0); HEMOGLOBIN 8.4 g/dl (14.0-18.0); LYMPHOCYTES # 1.7 10^3/ul (0.8-2.9); LYMPHOCYTES % 12.3 % (15.0-51.0); MEAN CORPUSCULAR HEMOGLOBIN 39.6 pg (29.0-33.0); MEAN CORPUSCULAR HGB CONC 35.9 g/dl (32.0-37.0); MEAN CORPUSCULAR VOLUME 110.4 fl (82.0-101.0); MEAN PLATELET VOLUME 12.4 fl (7.4-10.4); MONOCYTE # 1.3 10^3/ul (0.3-0.9); MONOCYTES % 9.4 % (0.0-11.0); NEUTROPHIL # 10.8 10^3/ul (1.6-7.5); NEUTROPHILS % 76.3 % (39.0-77.0); PLATELET COUNT 101 10^3/UL (140-415); RED BLOOD COUNT 2.12 10^6/ul (4.70-6.10); RED CELL DISTRIBUTION WIDTH 14.6 % (11.5-14.5)
[2017-07-19 06:12] LABS: WHITE BLOOD COUNT 14.1 10^3/ul (4.8-10.8)
[2017-07-19 06:36] LABS: ANION GAP 13 (8-16); BLOOD UREA NITROGEN 23 mg/dl (7-20); CALCIUM 7.9 mg/dl (8.4-10.2); CARBON DIOXIDE 19 mmol/L (21-31); CHLORIDE 105 mmol/L (97-110); GLUCOSE 133 mg/dl (70-220); POTASSIUM 4.3 mmol/L (3.5-5.1); SODIUM 133 mmol/L (135-144)
[2017-07-19] MEDS: PANTOPRAZOLE 40 MG INJ IV (06:50)
[2017-07-19] MEDS: SPIRONOLACTONE 50 MG TAB PO (06:50)
[2017-07-19] MEDS: FUROSEMIDE 20 MG TAB PO (06:52)
[2017-07-19] MEDS: VITAMIN A & D 5 GM OINT PACKET TOP ×2 (08:47→20:20)
[2017-07-19] MEDS: THIAMINE 100 MG TAB PO (08:47)
[2017-07-19] MEDS: RIFAXIMIN 550 MG TAB PO ×2 (08:47→20:20)
[2017-07-19] MEDS: FOLIC ACID 1 MG TAB PO (08:47)
[2017-07-19] MEDS: BALSAM PERU/CASTOR OIL 60 GM TUBE TOP (08:48)
[2017-07-19 13:25] LABS: ANA SCREEN NEGATIVE (NEGATIVE)
[2017-07-19] MEDS: PHYTONADIONE 10 MG in DEXTROSE 5% 50 ML IVPB (17:50)
[2017-07-19 17:56] LABS: MITOCHONDRIAL TB NEGATIVE (NEGATIVE); SMOOTH MUSCLE AB SCREEN POSITIVE (NEGATIVE)
[2017-07-19 18:41] LABS: SMOOTH MUSCLE AB TITER 1:20 titer (<1:20)
[2017-07-20] MEDS: LACTULOSE 30ML CUP PO ×4 (00:28→17:37)
[2017-07-20] MEDS: PANTOPRAZOLE 40 MG INJ IV (05:48)
[2017-07-20] MEDS: FUROSEMIDE 20 MG TAB PO (05:49)
[2017-07-20] MEDS: SPIRONOLACTONE 50 MG TAB PO (05:49)
[2017-07-20 06:26] LABS: INR 2.18; PROTIME 24.8 Sec (11.9-14.9); PT RATIO 1.9
[2017-07-20] MEDS: LIDOCAINE 1% (MDV) 10 ML INJ (10:07)
[2017-07-20] MEDS: ALBUMIN HUMAN 25% 100 ML IV ×2 (10:26→16:32)
[2017-07-20] MEDS: VITAMIN A & D 5 GM OINT PACKET TOP (10:27)
[2017-07-20] MEDS: FOLIC ACID 1 MG TAB PO (10:27)
[2017-07-20] MEDS: RIFAXIMIN 550 MG TAB PO (10:27)
[2017-07-20] MEDS: THIAMINE 100 MG TAB PO (10:27)
[2017-07-20] MEDS: BALSAM PERU/CASTOR OIL 60 GM TUBE TOP (10:42)
[2017-07-20 12:05] LABS: ANION GAP 16 (8-16); BLOOD UREA NITROGEN 24 mg/dl (7-20); CALCIUM 8.1 mg/dl (8.4-10.2); CARBON DIOXIDE 18 mmol/L (21-31); CHLORIDE 105 mmol/L (97-110); CREATININE 1.18 mg/dl (0.61-1.24); GLUCOSE 139 mg/dl (70-220); POTASSIUM 4.6 mmol/L (3.5-5.1); SODIUM 134 mmol/L (135-144)
== END 2017-07-20 18:36 | disposition home health service (06) | DRG 870 ==
LOC: ICU 15:14 → MS4 07-13 11:28 → PP2 07-18 17:55 → ICU 07-10 13:08 → E/R 13:14
PROC: 0BH17EZ Insertion of Endotracheal Airway into Trachea, Via Natural or Artificial Opening (ICD-10-PCS; principal; 2017-07-06)
PROC: 5A1955Z Respiratory Ventilation, Greater than 96 Consecutive Hours (ICD-10-PCS; 2017-07-06)
PROC: 0W9G3ZZ Drainage of Peritoneal Cavity, Percutaneous Approach (ICD-10-PCS; 2017-07-06)
PROC: 0W9G3ZZ Drainage of Peritoneal Cavity, Percutaneous Approach (ICD-10-PCS; 2017-07-16)
PROC: 0W9G3ZZ Drainage of Peritoneal Cavity, Percutaneous Approach (ICD-10-PCS; 2017-07-20)
DX: A41.9 Sepsis, unspecified organism (principal); K76.7 Hepatorenal syndrome; G92 Toxic encephalopathy; J96.01 Acute respiratory failure with hypoxia; J69.0 Pneumonitis due to inhalation of food and vomit; R65.21 Severe sepsis with septic shock; N17.0 Acute kidney failure with tubular necrosis; E87.1 Hypo-osmolality and hyponatremia; E87.2 Acidosis; E87.0 Hyperosmolality and hypernatremia; J98.11 Atelectasis; R97.0 Elevated carcinoembryonic antigen [CEA]; K72.90 Hepatic failure, unspecified without coma; K70.31 Alcoholic cirrhosis of liver with ascites; F10.20 Alcohol dependence, uncomplicated; E87.5 Hyperkalemia; D63.8 Anemia in other chronic diseases classified elsewhere; Z87.891 Personal history of nicotine dependence; K80.80 Other cholelithiasis without obstruction; K70.11 Alcoholic hepatitis with ascites; E80.6 Other disorders of bilirubin metabolism
CPT/HCPCS: 31500; 36415; 36600; 70450; 71045; 74018; 74176; 74181; 76700; 76775; 80048; 80053; 80202; 81001; 81003; 82043; 82105; 82140; 82378; 82607; 82803; 82962; 83036; 83615; 83690; 83735; 84100; 84155; 84157; 84300; 84425; 84443; 84484; 85025; 85049; 85610; 85670; 85730; 86038; 86255; 86301; 87070; 87081; 87102; 87116; 89051; 92526; 92610; 93005; 94002; 94003; 94770; 96365; 96366; 96368; 96375; 97110; 97116; 97162; 97165; 97535; 99291-25